=== PATIENT | male | born 1975 | race Caucasian/White ===

== ENCOUNTER 2017-08-10 12:49 | Emergency (ER) | payer SELFPAY ==
[2017-08-10 12:53] VITALS: BP 123/78; PULSE 71; TEMP 98.6; BMI 23.4
--- NOTE | 2017-08-10 13:17 | PDOC ---
History of Present Illness - General Chief Complaint: Lightheaded Stated Complaint: DIZZINESS - History of Present Illness Initial Comments: 08/10/17 15:03 41-year-old male with no significant past medical history presents with 1 week of intermittent lightheadedness and nausea. The patient reports the symptoms are worse when he stands up from a seated position. He denies any recent vomiting or diarrhea and has been eating his usual diet. He reports that he presented today because his partner urged him to come and get it checked out. He denies any fevers or chills. Denies chest pain, shortness of breath, headache , focal weakness or numbness, lower extremity edema, urinary symptoms. He's never had similar symptoms in the past. He denies any loss of consciousness. He reports family history of diabetes, but no other family history of cardiac disease or syncope. Does not have a PMD, last check up was 2 years ago. Social: occasional etoh, denies tobacco or drug use Past History - Past Medical History Allergies/Adverse Reactions: Allergies Allergy/AdvReac Type Severity Reaction Status Date / Time No Known Allergies Allergy Verified 08/10/17 12:50 Home Medications: Ambulatory Orders NK [No Known Home Medication] 08/10/17 Other medical history: DENIES - Suicide/Smoking/Psychosocial Hx Smoking History: Never smoked Have you smoked in the past 12 months: No Information on smoking cessation initiated: No Hx Alcohol Use: No Drug/Substance Use Hx: No Review of Systems - Review of Systems Comments:: 08/10/17 15:07 GENERAL/CONSTITUTIONAL: No fever or chills. No weakness. HEAD, EYES, EARS, NOSE AND THROAT: No change in vision. No ear pain or discharge. No sore throat. GASTROINTESTINAL: +nausea. no vomiting, diarrhea or constipation. GENITOURINARY: No dysuria, frequency, or change in urination. CARDIOVASCULAR: No chest pain or shortness of breath. RESPIRATORY: No cough, wheezing, or hemoptysis. MUSCULOSKELETAL: No joint or muscle swelling or pain. No neck or back pain. SKIN: No rash NEUROLOGIC: +lightheadedness. no headache, vertigo, loss of consciousness, or change in strength/sensation. ENDOCRINE: No increased thirst. No abnormal weight change. HEMATOLOGIC/LYMPHATIC: No anemia, easy bleeding, or history of blood clots. ALLERGIC/IMMUNOLOGIC: No hives or skin allergy. *Physical Exam - Vital Signs Last Vital Signs Temp Pulse Resp BP Pulse Ox 98.6 F 71 18 123/78 97 08/10/17 12:50 08/10/17 12:50 08/10/17 12:50 08/10/17 12:50 08/10/17 12:50 - Physical Exam Comments: 08/10/17 15:08 GENERAL: Awake, alert, and fully oriented, in no acute distress HEAD: No signs of trauma EYES: PERRLA, EOMI, sclera anicteric, conjunctiva clear ENT: Auricles normal inspection, hearing grossly normal, nares patent, oropharynx clear without exudates. dry MM NECK: Normal ROM, supple, no lymphadenopathy, JVD, or masses LUNGS: Breath sounds equal, clear to auscultation bilaterally. No wheezes, and no crackles HEART: Regular rate and rhythm, normal S1 and S2, no murmurs, rubs or gallops ABDOMEN: Soft, nontender, normoactive bowel sounds. No guarding, no rebound. No masses EXTREMITIES: Normal range of motion, no edema. No clubbing or cyanosis. No cords, erythema, or tenderness NEUROLOGICAL: Normal speech, cranial nerves intact, negative pronator drift, 5/ 5 strength in all 4 extremities, normal sensation to light touch in all 4 extremities, normal cerebellar exam, normal gait, normal reflexes and tone SKIN: Warm, Dry, normal turgor, no rashes or lesions noted. Heart Score/ECG Review #1 08/10/17 15:09 Twelve-lead EKG was performed and reviewed by me. Normal sinus rhythm, rate 67 area normal axis and intervals. No ST elevations or T-wave inversions. ED Treatment Course - LABORATORY CBC & Chemistry Diagram: 08/10/17 13:50 08/10/17 13:50 Medical Decision Making - Medical Decision Making 08/10/17 15:09 41-year-old male with no medical history presents with intermittent lightheadedness and nausea for 1 week. Vitals are unremarkable. Exam other than dry mucous membranes is unremarkable. Differential includes but is not limited to dehydration versus viral syndrome versus anemia. -labs -CXR -IVF -reassess 08/10/17 15:16 Labs and CXR wnl. Pt feels better after 1L IVF. He is walking around the ED with a steady gait. Likely mildly dehydrated. I advised pt to stay hydrated and f/u with a PMD within 1 week. I discussed the physical exam findings, ancillary test results and final diagnoses with the patient. I answered all of the patient's questions. The patient was satisfied with the care received and felt comfortable with the discharge plan and treatment plan. The patient will call their primary care physician within 24 hours to arrange follow-up and will return to the Emergency Department with any new, persistent or worsening symptoms. *DC/Admit/Observation/Transfer Diagnosis at time of Disposition: Lightheadedness - Discharge Dispostion Disposition: HOME Condition at time of disposition: Stable Admit: No - Referrals Referrals: James Pedroza MD [Staff Physician] - - Patient Instructions Printed Discharge Instructions: Dizziness, Nonvertigo Additional Instructions: Please see a primary care doctor within 1 week. Call the provided number tomorrow for an appointment. Return to the emergency department immediately for any new or concerning symptoms or if your symptoms get worse. Thank you for coming to the Emergency Department today for your care. It was a pleasure to see you today. Please note that your evaluation is INCOMPLETE until you follow- up with your doctor. - Attestations Physician Attestion: 08/10/17 15:19 I, Dr. Norbert Corley MD, attest that this document has been prepared under my direction and personally reviewed by me in its entirety. I further attest, that it accurately reflects all work, treatment, procedures and medical decision -making performed by me.
[2017-08-10] MEDS ORDERED: SODIUM CHLORIDE 0.9% 500 ML INFUS.BAG IV ONE (13:27)
[2017-08-10] MEDS ORDERED: ONDANSETRON 4 MG/2 ML VIAL IVPUSH ONE (13:27)
[2017-08-10] MEDS ORDERED: ONDANSETRON 4 MG/2 ML VIAL ONE (14:00)
[2017-08-10 14:06] LABS: BASOPHIL 2.7 % (0-2.0); EOSINOPHIL 2.5 % (0-4.5); MCHC 33.2 g/dl (32.0-35.9); MEAN CELL VOLUME 84.3 fl (80-96); MEAN PLT VOLUME 9.4 fl (7.5-11.1); NEUTROPHILS 65.5 % (42.8-82.8); PLATELET COUNT 299 K/MM3 (134-434); RDW 12.4 % (11.9-15.9); WHITE BLOOD COUNT 9.6 K/mm3 (4.0-10.8)
[2017-08-10 14:24] LABS: ALBUMIN 4.3 g/dl (3.5-5.0); ALK PHOS 82 U/L (32-92); ANION GAP 5 (8-16); BILIRUBIN,TOTAL 0.5 mg/dl (0.2-1.0); CALCIUM 9.3 mg/dl (8.4-10.2); CO2 28 mmol/L (22-28); CREATININE 0.8 mg/dl (0.6-1.3); GLUCOSE,RANDOM 98 mg/dl (74-106); MAGNESIUM 2.1 mg/dL (1.8-2.4); SGOT/AST 20 U/L (10-42); SGPT/ALT 19 U/L (10-40); TOT PROT 7.2 g/dl (6.4-8.3)
[2017-08-10 15:13] LABS: PH,URINE 7.5 (4.5-8); URINE APPEARANCE Clear; URINE BILIRUBIN Negative (NEGATIVE); URINE BLOOD Negative (NEGATIVE); URINE GLUCOSE (UA) Negative (NEGATIVE); URINE KETONE Negative (NEGATIVE); URINE LEUK ESTERASE Negative (NEGATIVE); URINE NITRITE Negative (NEGATIVE); URINE PROTEIN Negative (NEGATIVE); URINE UROBILINOGEN 0.2 (0.2-1.0)
[2017-08-10 15:14] LABS: URINE COLOR YELLOW
--- NOTE | 2017-08-12 18:24 | EKG ---
Test Reason : Blood Pressure : / mmHG Vent. Rate : 067 BPM Atrial Rate : 067 BPM P-R Int : 152 ms QRS Dur : 082 ms QT Int : 382 ms P-R-T Axes : 035 042 044 degrees QTc Int : 403 ms NORMAL SINUS RHYTHM RSR' PATTERN IN V1 NO PREVIOUS ECGS AVAILABLE REPEAT EKG IF CLINICALLY INDICATED Confirmed by LOUIS BROWN MD ([id number]) on 08/12/2017 6:24:45 PM Referred By: DENIA Confirmed By:LOUIS BROWN MD
== END 2017-08-10 15:33 | disposition home or self-care (01) ==
LOC: FER 12:49
PROC: 3E033GC Introduction of Other Therapeutic Substance into Peripheral Vein, Percutaneous Approach (ICD-10-PCS; principal; 2017-08-10)
PROC: 3E0337Z Introduction of Electrolytic and Water Balance Substance into Peripheral Vein, Percutaneous Approach (ICD-10-PCS; 2017-08-10)
DX: R42 Dizziness and giddiness (principal)
CPT/HCPCS: 36415; 71020-TC; 80053; 81003; 83735; 83880; 84484; 85025; 93005; 99284-25